=== PATIENT | male | born 1945 | race Caucasian/White ===

== ENCOUNTER 2016-08-27 12:49 | Inpatient (IN) | payer MEDICARE, OTHER ==
[~2016-08-27] VITALS: Ht 177.8 cm; Wt 87.5 kg
--- NOTE | ~2016-08-27 | OR ---
PATIENT'S NAME: RAINER ARENAS [facility] AGE: 71 Y [address] ROOM: [address] [address] LOCATION: GPCU ADMIT DATE: 08/28/2016 OR/Procedure Report DISCHARGE DATE: FAMILY PHYSICIAN: Marc Benito MD ATTENDING PHYSICIAN: SJ PRIETO SURGEON: Sj Prieto MD STAFF HOME THERAPY RN: DATE OF PROCEDURE: 08/28/2016 PREOPERATIVE DIAGNOSIS: Symptomatic right carotid artery stenosis. POSTOPERATIVE DIAGNOSIS: Symptomatic right carotid artery stenosis. PROCEDURE PERFORMED: Right carotid endarterectomy with bovine pericardial patch. SUPERVISOR ROLLING ROOM: LINDSEY Woo. ANESTHESIA: General. ESTIMATED BLOOD LOSS: 100 mL. OPERATIVE FINDINGS: High-grade heavily calcified near occlusive lesion of the right carotid artery, neurologically intact at the end of the case. DESCRIPTION OF PROCEDURE: The patient was brought to the operating room, placed supine on the operative table. Prepped and draped in a sterile manner. After being placed under anesthesia, had placement of arterial line as well as a Gavin catheter. We made a standard incision along the anterior border of sternocleidomastoid muscle dissected through the platysma, dissected the soft areolar tissue on the anterior border of the sternocleidomastoid muscle. The patient's internal jugular vein was not present in this tissue. We then dissected out the common carotid, external carotid, superior thyroid, as well as the internal carotid artery. We then gave 5000 units of heparin. Clamped on all 3 major vessels. We made an arteriotomy using 11 blade on the common and extended to the internal carotid using Hernandez scissors. The plaque extended very high superiorly. We initially tried to place a 5 x 3 Sundt shunt into the artery, and we were unable to do so. We then removed the plaque in its entirety and then attempted to place the shunt once again and still we were unable to pass the shunt likely because of the extent of the plaque. We had good back bleeding. We did not want to attempt to dissect the artery by forcing the shunt, so we abandoned that. We removed the plaque in its entirety and removed any small debris. We probed the external carotid which was occluded on the skin and had copious amounts of soft plaque which may have contributed to the patient's TIA, we removed that as much as we PATIENT'S NAME: GILBERT, RAINER E [facility] AGE: 71 Y [address] ROOM: [place] [address] [facility] ADMIT DATE: 08/28/2016 OR/Procedure Report DISCHARGE DATE: FAMILY PHYSICIAN: Marc Benito MD ATTENDING PHYSICIAN: SJ PRIETO could, but there was still no back flow. We then did a standard bovine pericardial patch using 2 running 6-0 Sedgwick sutures. We removed the clamp from the common and then the clamp from the internal. Flow was confirmed using Doppler. There was still no flow in the external. Heparin was reversed with protamine. Deep layers were closed with 2-0 and 3-0 Vicryl. Skin was closed with running 4-0 Monocryl. Thrombin was used locally in the wound. The wound was covered also with Dermabond after closure. The patient tolerated the procedure well, awoken in the operating room, able to move all extremities and follow commands. SJ PRIETO MD FKM/modl /[id number] d: 08/29/16 0100 t: 09/01/16 0945, OPERATIVE SUMMARY
--- NOTE | ~2016-08-27 | CON ---
PATIENT'S NAME: RAINER ARENAS [facility] AGE: 71 Y [address] ROOM: [place] [address] LOCATION: [facility] ADMIT DATE: 08/27/2016 Consultation DISCHARGE DATE: FAMILY PHYSICIAN: Marc Benito MD ATTENDING PHYSICIAN: EDWIN PRIETO CHIEF COMPLAINT: Right carotid stenosis. HISTORY OF PRESENT ILLNESS: The patient is a 71-year-old gentleman with a past medical history of recent diagnosis of TIA, recent diagnosis of right carotid stenosis, hypertension, smoking, GERD, and throat cancer, status post chemo on radiation who presents here with right carotid stenosis. The patient was admitted from Dr. Prieto's office after evaluation of carotid artery stenosis. The patient is scheduled for elective carotid artery stenosis repair with [facility]. The patient reports that on Saturday, August 25 2016, he experienced slurred speech and dysarthria. He was taken to [place] [facility] and was subsequently admitted. On further investigation, carotid shows right-sided carotid artery stenosis close to 80%. The patient symptoms improved and was discharged home. As a followup with Dr. Prieto, he was seen in Dr. Prieto's office and was directly admitted for surgical intervention. The patient currently denies any chest pain, shortness of breath, fever, chills, abdominal pain, nausea, vomiting, diarrhea, and weight loss. Of note, the patient is a solo and reports that his job requires extensive physical requirement and reports that he at least walks 300 steps a day. He denies any chest pain or shortness of breath during this physical endurement. PAST MEDICAL HISTORY: 1. Hypertension. 2. GERD. 3. COPD. 4. Tobacco use. 5. Throat cancer. 6. Hypothyroid. PAST SURGICAL HISTORY: 1. Right knee scope. 2. Back surgery. 3. Appendectomy. 4. Tonsillectomy. FAMILY HISTORY: The patient reports that his mother has some sort of cancer, but was not able PATIENT'S NAME: RAINER ARENAS [facility] AGE: 71 Y [address] ROOM: [place] [address] LOCATION: [facility] [place] ADMIT DATE: 08/27/2016 Consultation DISCHARGE DATE: FAMILY PHYSICIAN: Marc Benito MD ATTENDING PHYSICIAN: EDWIN PRIETO to remember. SOCIAL HISTORY: The patient is a current smoker. Denies alcohol use. Currently works as a solo as feeding cattles. MEDICATIONS: Medications at home: 1. Amlodipine 10 mg daily. 2. Protonix 40 mg daily. 3. Losartan 100 mg daily. 4. Synthroid 125 mcg daily. 5. Bystolic 5 mg daily. 6. Simvastatin 80 mg daily. 7. Spiriva. 8. Aspirin 325 mg. 9. Tylenol 325 mg as needed. REVIEW OF SYSTEMS: Ten-point system was evaluated. All negative except noted on HPI. PHYSICAL EXAMINATION: VITAL SIGNS: Stable. GENERAL APPEARANCE: The patient is alert and awake in no acute distress. HEENT: Moist oral mucosa. No nasal discharge. Extraocular muscle intact. NECK: Right carotid bruit. LUNGS: Clear to auscultation. No rhonchi. No rales. No wheezing. HEART: RRR. MRG. ABDOMEN: Soft, nontender, nondistended. Bowel sound present. EXTREMITIES: No edema. Distal pulse present. NEUROLOGIC: Alert and oriented x3. Motor and sensory grossly intact. SKIN: Warm to touch. No skin lesion noted. ASSESSMENT AND PLAN: The patient is a 71-year-old gentleman with a past medical history of hypertension and recent history of transient ischemic attack with right-sided carotid stenosis of 80% who presents here from Dr. Prieto's office for carotid endarterectomy. 1. Carotid stenosis. The patient with risk factor of recent transient ischemic attack, smoking, hypertension, and hyperlipidemia. The patient is scheduled for carotid endarterectomy. We will continue aspirin. We will change simvastatin to appropriate dose of Lipitor. 2. Hypertension. Stable. Continue medications. 3. Chronic obstructive pulmonary disease. Stable. We will continue home medications with albuterol as p.r.n. PATIENT'S NAME: RAINER ARENAS [facility] AGE: 71 Y [address] ROOM: [address] [address] LOCATION: [facility] [place] ADMIT DATE: 08/27/2016 Consultation DISCHARGE DATE: FAMILY PHYSICIAN: Marc Benito MD ATTENDING PHYSICIAN: EDWIN PRIETO 4. Gastroesophageal reflux disease. Continue Protonix. 5. Hypothyroidism. Continue home medications. 6. Deep venous thrombosis. Sequential compressive device. 7. Tobacco use. More than 3 minutes was spent on tobacco cessation counseling. Close to 30 minutes was spent on plan and care of the patient. Discussion was made at bedside with the patient. All questions were answered. Thank you very much for consulting us. MD DONNIE BAXTER/reno /[id number] d: 08/28/16 0044 t: 08/28/16 1134, CONSULTATION REPORT
[~2016-08-27 12:49] MED LIST: ASPIRIN EC325 MG PO; BYSTOLIC5 MG PO; CITRATE OF MAG296 ML PO; COLACE100 MG PO; COZAAR100 MG PO; FLEXERIL10 MG PO; LEVOTHROID (S125 MCG PO; MILK OF MA400 MG/5 M PO; NIACIN1000 MG PO; NORVASC10 MG PO; PROTONIX40 MG PO; SENOKOT-S TABL1 EACH PO; SPIRIVA RESPIMAT4 G1 INH; TYLENOL325 MG PO; ULTRAM50 MG PO; ZOCOR80 MG PO
[2016-08-27] MEDS ORDERED: ZYRTEC10 MG PO (14:02)
[2016-08-27] MEDS ORDERED: ALDARA TOP (14:03)
--- NOTE | 2016-08-27 14:31 | NUR ---
Pt is 71 y/o male admit for carotid stenosis for . Hospitalist to manage medical care. Pt alert and oriented x3. Pt resides at home with his . Pt states Saturday night they were getting ready to come home from a dance and he couldn't talk,had slurred speech. Went to [place] ED for evaluation. BP was elevated at this time and pt had a mild headache. in [place] noted a thrill in R)carotid in his H&P. Pt has hx htn,hypercholest, CAD,COPD,sleep apnea-Cpap at night,throat cancer,gerd,hypothyroid,paralytic ileus,OA,ulcer,bronchitis,constipation. Plan is for carotid endarterectomy tmw. Pt to be NPO after midnight.
--- NOTE | 2016-08-27 15:55 | NUR ---
Significant Event: Patient arrived on floor at 1310. Patient accompanied by . Patient settled and was going to try and slip home and bring patient's CPAP back up for tonight. Denies pain. Regular diet ordered for patient and he will be NPO after midnight for carotid endarterectomy in the a.m. Patient will go to PCU after procedure. Alert/oriented. Had a TIA last Saturday, but is currently doing well. Will try and start an IV shortly and get consent signed. Follow up: Continue to monitor. NPO after midnight.
[2016-08-27 19:01] LABS: BASOPHIL # 0.1 K/uL (0.0-0.2); BASOPHIL % 0.7 %; EOSINOPHIL # 0.2 K/uL (0.0-0.5); EOSINOPHIL % 2.6 %; HEMATOCRIT 45.7 % (37.0-53.0); HEMOGLOBIN 15.6 g/dL (11.0-16.0); IMMATURE GRANULOCYTE % 0.5 %; LYMPHOCYTE # 1.3 K/uL (0.8-4.0); LYMPHOCYTE % 14.8 %; MCH 31.5 pg (27.0-34.0); MCHC 34.1 gm/dL (32.0-36.5); MCV 92.3 fl (83.0-98.0); MONOCYTE # 0.5 K/uL (0.0-1.0); MONOCYTE % 5.9 %; MPV 8.5 fl (9.4-12.4); NEUTROPHIL # (ANC) 6.5 K/uL (1.4-9.0); NEUTROPHIL % 75.5 %; NRBC % 0 /100WBC (0-0.00); PLATELET COUNT 295 K/uL (150-450); RBC 4.95 M/uL (3.50-5.50); RDW-CV 13.2 % (11.9-14.6); WBC 8.6 K/uL (4.0-11.0)
[2016-08-27 19:14] LABS: ANION GAP 9.9 (10.0-19.0); BLOOD UREA NITROGEN 14 mg/dL (6-24); CALCIUM 8.6 mg/dL (8.5-10.5); CHLORIDE 102 mMol/L (96-110); CO2 28 mMol/L (22-32); ESTIMATED GFR (MDRD EQUATION) > 60; POTASSIUM 3.9 mMol/L (3.7-5.1); SODIUM 136 mMol/L (135-145)
--- NOTE | 2016-08-28 03:50 | NUR ---
ADMITTED 4/3 CAROTID STENOSIS, HTN NOTED, BRADYCARDIA NOTED AND PLACED ON TELEMETRY NO ECTOPY NOTED, SCHEDULED FOR ENDARCECTOMY AND NPO SINCE MIDNIGHT AND WILL GO TO PCU AFTER PROCEDURE, CPAP QHS W/2L O2 FOR SUPPORT OVERNIGHT, LEFT WRIST PIV SALINE LOCKED, NO PAIN REPORTED. TOLERATED A REGULAR DIET AND GOOD PO INTAKE YESTERDAY AND GOOD URINE OUTPUT. INDEPENDENT IN ROOM. CONSENTS SIGNED AND ON CHART.
--- NOTE | 2016-08-28 10:44 | NUR ---
Significant event: Patient is alert and oriented. VSS. On room air. Has been NPO since midnight for procedure today. Patient is independent with ambulation. Is on tele for bradycardia and hypertension. Wears a CPAP at night. Patient will be going to PCU after procedure.
--- NOTE | 2016-08-28 19:22 | NUR ---
Significant Event: SBP 120-150'S. AFTER ACTIVITY GETTING UP TO CHAIR 1PA SBP 160-170'S. NSR RATES 60'S. O2 SATS >90% ON 4L PER NC WITH ORDERS TO MAINTAIN SATS >90%. LUNGS CLEAR/DIM. HOME CPAP AT BEDSIDE WITH ORDERS TO WEAR CPAP AT NIGHT WITH 2L O2 PER NC PER HOME SETTINGS. ARTERIAL LINE TO L) ANT WRIST WITH PIV TO L) WRIST WITH LR FINISHING FROM O2. D51/2NS WITH 20KCL TO BE STARTED AT 100ML/HR X 24HOURS. MIDLINE PIV TO L) UPPER ARM SL'D. A/O X3. R) NECK INCISION SOFT WITH SUTURES, GLUE AND PRIMAPORE DRESSING C/D/I. CHENG TO DD WITH CLEAR YELLOW UOP. TAKES MEDS WITHOUT DIFFICULTY. 1 TAB NORCO GIVEN PRIOR TO SHIFT CHANGE FOR DISCOMFORT RATING 5/10 ON SCALE. AT BEDSIDE. Follow up: ART LINE AND CHENG TO BE DC'D IN AM IF NO ISSUES. PAIN MANAGEMENT.
--- NOTE | 2016-08-29 04:09 | NUR ---
Significant Event: PATIENT IS A/O X3. VSS. HR 40-60'S. SBP 90-150'S. AFEBRILE. 02 SATS IN MID 90'S DOWN TO 3L 02 BEFORE GOING ON CPAP WITH 02 CONNECTED PER HOME DOSE. C/O PAIN TO RIGHT NECK. 2 TABS NORCO GIVEN X2 WITH RELIEF. LUNGS CLEAR TO CLEAR/DIM. UP WITH SBA TO CHAIR. BOWELS ACTIVE. C/O CONSTIPATION, ON/OFF NAUSEA, INDIGESTION, AND BLOATING. GAVE 2 TABS SENNA, IVP ZOFRAN, AND MYLANTA ALL HELPING WITH RELIEF. CHENG TO BE REMOVED AT 0500. RIGHT NECK DRESSING C/D/I AND CSM WNL. MIDLINE TO RIGHT UPPER ARM SL, LEFT WRIST WITH D5 1/2 NS WITH K+, AND ART LINE TO LEFT RADIAL TO BE REMOVED BEFORE SHIFT CHANGE. Follow up: MONITOR O2 STATUS. POSSIBLE D/C IN EVENING?
[2016-08-29 05:57] LABS: ANION GAP 9.7 (10.0-19.0); BLOOD UREA NITROGEN 13 mg/dL (6-24); CALCIUM 7.7 mg/dL (8.5-10.5); CHLORIDE 100 mMol/L (96-110); CO2 28 mMol/L (22-32); CREATININE 0.9 mg/dL (0.6-1.3); ESTIMATED GFR (MDRD EQUATION) > 60; POTASSIUM 3.7 mMol/L (3.7-5.1); SODIUM 134 mMol/L (135-145)
[2016-08-29 06:04] LABS: BASOPHIL % 0.4 %; EOSINOPHIL # 0.1 K/uL (0.0-0.5); EOSINOPHIL % 0.7 %; HEMATOCRIT 36.6 % (37.0-53.0); HEMOGLOBIN 12.4 g/dL (11.0-16.0); IMMATURE GRANULOCYTE # 0.1 K/uL (0.0-0.3); IMMATURE GRANULOCYTE % 0.6 %; LYMPHOCYTE # 0.9 K/uL (0.8-4.0); LYMPHOCYTE % 8.3 %; MCH 31.3 pg (27.0-34.0); MCHC 33.9 gm/dL (32.0-36.5); MCV 92.4 fl (83.0-98.0); MONOCYTE # 0.8 K/uL (0.0-1.0); MONOCYTE % 7.6 %; MPV 8.9 fl (9.4-12.4); NEUTROPHIL % 82.4 %; NRBC % 0 /100WBC (0-0.00); PLATELET COUNT 260 K/uL (150-450); RBC 3.96 M/uL (3.50-5.50); RDW-CV 13.2 % (11.9-14.6); WBC 10.9 K/uL (4.0-11.0)
--- NOTE | 2016-08-29 12:58 | NUR ---
Introduced self and care management services to patient and at bedside. Lives in [place], planning on going home later today. will assist at home as needed. Will follow.
[2016-08-29] MEDS ORDERED: PLAVIX75 MG PO (13:51)
[2016-08-29] MEDS ORDERED: NORCO 5-325 TA1 EACH PO (13:54)
--- NOTE | 2016-08-29 15:15 | NUR ---
PATIENT AND GIVEN WRITTEN DISMISSAL INSTRUCTIONS INCLUDING NEW MEDICATION LIST WITH INFORMATION ON NEW MEDS, PRESCRIPTIONS, FOLLOW-UP APPOINTMENT TIME AND CLINIC CARD FOR ALIS, DIET AND ACTIVITY RESTRICTIONS. PATIENT REFUSES INFORMATION ON TOBACCO CESSATION. BOTH AND PATIENT UNDERSTAND INFORMATION DISCUSSED WITH RN REGARDING DISMISSAL PAPERWORK. PIV TO L) WRIST AND R) UPPER ARM DC'D WITH GAUZE AND COBAN APPLIED. TELEMETRY DC'D AND PATIENT DRESSED. TAKEN TO FRONT OF [facility] VIA WHEELCHAIR ACCOMPANIED BY , RN AND BELONGINGS AT 1455.
== END 2016-08-29 14:55 | disposition disaster alternative care site (69) | DRG 39 ==
LOC: GMSU 12:49 → GPCU 12:49
PROVIDERS: ADMIT Surgery Vascular Surgery
PROC: 03CK0ZZ Extirpation of Matter from Right Internal Carotid Artery, Open Approach (ICD-10-PCS; principal; 2016-08-28)
PROC: 03UM0KZ Supplement Right External Carotid Artery with Nonautologous Tissue Substitute, Open Approach (ICD-10-PCS; principal; 2016-08-28)
DX: I65.21 Occlusion and stenosis of right carotid artery (principal); J44.9 Chronic obstructive pulmonary disease, unspecified; E03.9 Hypothyroidism, unspecified; E78.5 Hyperlipidemia, unspecified; I10 Essential (primary) hypertension; K21.9 Gastro-esophageal reflux disease without esophagitis; Z87.891 Personal history of nicotine dependence; Z92.3 Personal history of irradiation; G47.33 Obstructive sleep apnea (adult) (pediatric)
CPT/HCPCS: C1751; G0378; J0690; J1100; J1644; J1650; J2405; J2720; J3480; J7050; J7120; Q9967

== ENCOUNTER → 2016-12-04 | Outpatient (CLI) | payer MEDICARE, OTHER ==
[~2016-12-04] MED LIST changes: +ALDARA TOP; +NORCO 5-325 TA1 EACH PO; +PLAVIX75 MG PO; +ZYRTEC10 MG PO
[2016-12-04 12:35] LABS: BASOPHIL # 0.1 K/uL (0.0-0.2); BASOPHIL % 1.2 %; EOSINOPHIL # 0.2 K/uL (0.0-0.5); EOSINOPHIL % 2.7 %; HEMOGLOBIN 15.7 g/dL (11.0-16.0); IMMATURE GRANULOCYTE % 0.1 %; LYMPHOCYTE # 1.4 K/uL (0.8-4.0); LYMPHOCYTE % 16.4 %; MCV 91.8 fl (83.0-98.0); MONOCYTE # 0.9 K/uL (0.0-1.0); MONOCYTE % 10.3 %; NEUTROPHIL # (ANC) 5.8 K/uL (1.4-9.0); NEUTROPHIL % 69.3 %; NRBC % 0 /100WBC (0-0.00); RDW-CV 13.3 % (11.9-14.6); WBC 8.4 K/uL (4.0-11.0)
[2016-12-04 12:36] LABS: HEMATOCRIT 45.6 % (37.0-53.0); MCH 31.6 pg (27.0-34.0); MCHC 34.4 gm/dL (32.0-36.5); PLATELET COUNT 315 K/uL (150-450); RBC 4.97 M/uL (3.50-5.50)
[2016-12-04 12:52] LABS: ALBUMIN 3.5 gm/dL (3.5-5.0); ALK PHOS 98 IU/L (33-138); ALT 19 IU/L (12-78); ANION GAP 10.4 (10.0-19.0); AST 22 IU/L (10-40); BLOOD UREA NITROGEN 11 mg/dL (6-24); CALCIUM 8.9 mg/dL (8.5-10.5); CHLORIDE 100 mMol/L (96-110); CO2 26 mMol/L (22-32); CREATININE 0.8 mg/dL (0.6-1.3); ESTIMATED GFR (MDRD EQUATION) > 60; POTASSIUM 4.4 mMol/L (3.7-5.1); SODIUM 132 mMol/L (135-145); TOTAL BILIRUBIN 0.4 mg/dL (0.0-1.5); TOTAL PROTEIN 6.9 g/dL (6.0-8.4)
== END | disposition disaster alternative care site (69) ==
LOC: LNHI 12:25
PROVIDERS: Surgery Vascular Surgery
DX: I65.29 Occlusion and stenosis of unspecified carotid artery (principal); I73.9 Peripheral vascular disease, unspecified

== ENCOUNTER → 2016-12-11 | Outpatient (CLI) | payer MEDICARE, OTHER | END | disposition disaster alternative care site (69) | LOC: GRAD 09:49 | DX: R94.39 Abnormal result of other cardiovascular function study (principal); I65.22 Occlusion and stenosis of left carotid artery; I70.0 Atherosclerosis of aorta; Z98.890 Other specified postprocedural states ==